=== PATIENT | male | born 1945 | race Caucasian/White ===

== ENCOUNTER → 2017-01-30 | Outpatient (REF) | payer MEDICARE ==
[2017-02-02 00:06] LABS: Lyme Disease IgG/IgM Antibodie <0.91 ISR (0.00-0.90); Lyme Disease IgM Ab Quantitati <0.80 index (0.00-0.79)
== END ==
LOC: M LAB REF 13:39
PROVIDERS: ATTEND Internal Medicine
DX: Z11.2 Encounter for screening for other bacterial diseases (principal); W57.XXXA Bitten or stung by nonvenomous insect and other nonvenomous arthropods, initial encounter; Y92.89 Other specified places as the place of occurrence of the external cause; Y93.89 Activity, other specified; Y99.8 Other external cause status

== ENCOUNTER 2017-02-08 17:01 | Emergency (ER) | payer MEDICARE ==
[~2017-02-08] VITALS: Ht 172.7 cm; Wt 75.0 kg
[2017-02-08] MEDS ORDERED: TAMSULOSIN (17:17)
[2017-02-08] MEDS ORDERED: VENTAER (17:17)
[2017-02-08] MEDS ORDERED: OMEP40CA2 (17:17)
[2017-02-08] MEDS ORDERED: PRAV20TA2 (17:17)
[2017-02-08] MEDS ORDERED: ZOLP10TA2 (17:17)
--- NOTE | 2017-02-08 17:58 | ED PDOC ---
Post-Departure Follow-Up PT PRESENTS WITH TODAY STATING HE HAS A BLOCKAGE IN HIS DUODENUM. STATES HE HAS BEEN HAVING SYMPTOMS OF UPPER ABDOMINAL PAIN, DISTENTION, FULLNESS ALL AFTER EATING AND THIS HAS BEEN GOING ON SINCE . PT STATES AT THAT TIME, HE THOUGHT HE ATE TOO MUCH AND THESE SYMPTOMS WERE ONLY OCCURRING 1-3 TIMES A WEEK. IN THE PAST WEEK, THESE SYMPTOMS HAVE BEEN PRESENT EVERYDAY AND PT STATES "AND THEN I STOPPED EATING ABOUT 3 DAYS AGO. I DON'T HAVE PAIN WHEN I DON'T EAT." ADMITS TO HAVE LITTLE TO DRINK AND "A HANDFUL OF CHEERIOS, SOME CATALINA BRYAN," OVER THE PAST 3 DAYS. STATES DIARRHEA AND STILL MAKING URINE. DENIES ANY PAIN AT THIS TIME. STATES HE WAS SEEN BY HIS PRIMARY ON 01/31/17 AND HAD LABS DRAWN ON 01/30/17. HAD A CT SCAN DONE YESTERDAY AT [facility] THAT REPORTED: "I CANNOT RULE OUT THE POSSIBILITY OF A PARTIAL GASTRIC OUTLET OBSTRUCTION. EGD IS RECOMMENDED TO RILE OUT A DUODENAL ABNORMALITY. IT SHOULD BE STATED THAT THE PRIOR UPPER GI ON 02/01/17 DID SHOW A FILLING DEFECT WITHIN THE POST BILBAR DUODENUM AND BASED ON THAT EXAM, A MASS LESION COULD NOT BE RULED OUT." TERI GARZA PA-C Feb 08, 2017 17:58
[2017-02-08] MEDS ORDERED: ONDANSETRON 4MG/2ML VIAL (J2405) IV ONE (18:00)
[2017-02-08] MEDS ORDERED: NS 1,000 ML IV ONE (18:00)
[2017-02-08 18:09] LABS: BASO % 0.5 % (0.0-1.0); EOS # 0.2 10^3/uL (0.0-0.50); EOS % 2.4 % (0.0-3.0); IMMATURE GRANULOCYTE % 0.5 % (0-0); LYMPH # 1.7 10^3/uL (1.5-4.5); LYMPH % 19.8 % (24.0-44.0); MEAN CORPUSCULAR HEMOGLOBIN 32.4 pg (27.0-33.0); MEAN CORPUSCULAR HGB CONC 35.5 g/dl (32.0-36.5); MEAN CORPUSCULAR VOLUME 91.1 fl (80.0-96.0); MONO # 0.7 10^3/uL (0.0-0.8); MONO % 8.2 % (0.0-5.0); NEUTROPHILS % 68.6 % (36.0-66.0); PLATELET COUNT, AUTOMATED 190 10^3/uL (150-450); WHITE BLOOD COUNT 8.8 10^3/uL (4.0-10.0)
[2017-02-08 18:39] LABS: ALBUMIN/GLOBULIN RATIO 1.35 (1.00-1.93); ALKALINE PHOSPHATASE 64 U/L (45-117); ALT/SGPT 44 U/L (12-78); AMYLASE 89 U/L (25-115); ANION GAP 11 MEQ/L (8-16); AST/SGOT 31 U/L (7-37); BILIRUBIN,DIRECT 0.3 MG/DL (0.0-0.2); BLOOD UREA NITROGEN 19 MG/DL (7-18); CALCIUM LEVEL 9.6 MG/DL (8.8-10.2); CARBON DIOXIDE LEVEL 29 MEQ/L (21-32); CHLORIDE LEVEL 99 MEQ/L (98-107); CREATININE FOR GFR 1.13 MG/DL (0.70-1.30); GLOMERULAR FILTRATION RATE > 60.0 (>42); GLUCOSE, FASTING 93 MG/DL (83-110); POTASSIUM SERUM 3.8 MEQ/L (3.5-5.1); SODIUM LEVEL 139 MEQ/L (136-145); TOTAL PROTEIN 8.7 GM/DL (6.4-8.2)
--- NOTE | 2017-02-08 18:50 | REPUSA ---
Clinical history: Right upper quadrant pain. Findings: The pancreas is limited in visualization secondary to overlying bowel gas, but appears amira sly unremarkable. The liver demonstrates increased echotexture and echogenicity, with no mass lesion s. The gallbladder is unremarkable. The common bile duct measures 4 mm and is within normal limits. T here is no ascites.. The right kidney measures 11.7 cm in length and is unremarkable. Impression: Fatty infiltration of the liver.
[2017-02-08 19:40] VITALS: BP 133/73
== END 2017-02-08 19:43 | disposition home or self-care (01) ==
LOC: M ED 17:01
DX: K31.1 Adult hypertrophic pyloric stenosis (principal); R11.2 Nausea with vomiting, unspecified; Z79.899 Other long term (current) drug therapy
CPT/HCPCS: 36415; 76705; 80048; 80076; 82150; 83690; 85025; 86140; 96374; 99284; J2405